=== PATIENT | female | born 1975 | race African-American/Black ===

== ENCOUNTER 2020-05-12 13:00 | Outpatient (CLI) | payer OTHER, SELFPAY ==
--- NOTE | ~2020-05-12 | CT_ITS ---
EXAMINATION: CTA chest PE protocol DATE: 05/12/2020 13:56 INDICATION: COPD TECHNIQUE: Computed tomography angiography (CTA) of the chest was performed with 100 mL Omnipaque-350 intravenous contrast timed to evaluate the pulmonary arteries. Coronal maximum intensity projection 3D-reconstructions were created by the technologist. Automated exposure control and iterative reconst ruction technique were employed. Exam dose: 412.75 mGy-cm total exam DLP. COMPARISON: None. FINDINGS: There is diagnostic contrast enhancement of the pulmonary arteries. There is no evidence of pulmonary embolism. No thoracic aortic aneurysm or dissection. No hilar or mediastinal mass lesion or lymphadenopathy. Normal heart size. No pericardial or pleural effusion. Mild emphysematous changes of the lungs. No pulmonary infiltrate or consolidation or pulmonary mass l esion is evident. Normal morphology of the adrenal glands. Included skeletal structures are unremarkable. No suspicious osteolytic or osteoblastic lesions are i dentified. IMPRESSION: No evidence of pulmonary embolism COPD Reviewed, dictated and finalized at [facility]. Reviewed, dictated and finalized at [facility].
== END 2020-05-12 13:01 | disposition home or self-care (01) ==
LOC: ANHIMG 13:03
PROVIDERS: PCP Emergency Medicine; Visit Provider Internal Medicine Pulmonary Disease
DX: J44.9 Chronic obstructive pulmonary disease, unspecified (principal)
CPT/HCPCS: 71275; 94618; Q9967

== ENCOUNTER 2020-05-12 16:05 | Outpatient (CLI) | payer OTHER, SELFPAY ==
[2020-05-12] VITALS (8 sets, daily range): PULSE 92–135; O2SAT 95–98
--- NOTE | 2020-05-12 14:36 | HOMEO2EVAL ---
Home Oxygen Evaluation RC: Home Oxygen (O2) Evaluation Start: 05/12/20 14:29 Freq: Status: Active Protocol: RPE Activity Type Activity Date Activity User E-Sign Co-Sign Detail Recorded Client Recorded Date Recorded By Document 05/12/20 13:15 [email or web address] [email or web address] 05/12/20 14:36 KIERSTEN Document 05/12/20 13:20 [email or web address] [email or web address] 05/12/20 14:36 KIERSTEN Document 05/12/20 13:21 KIERSTEN [email or web address] 05/12/20 14:36 KIERSTEN Document 05/12/20 13:22 KIERSTEN [email or web address] 05/12/20 14:36 KIERSTEN Document 05/12/20 13:23 KIERSTEN [email or web address] 05/12/20 14:36 KIERSTEN Document 05/12/20 13:24 KIERSTEN [email or web address] 05/12/20 14:36 KIERSTEN Document 05/12/20 13:25 KIERSTEN [email or web address] 05/12/20 14:36 KIERSTEN Document 05/12/20 13:35 KIERSTEN [email or web address] 05/12/20 14:36 KIERSTEN 05/12/20 05/12/20 05/12/20 13:15 13:20 13:21 Home O2 Evaluation Test Phase Resting Exercise Exercise Oxygen Delivery Room Air Room Air Room Air Pulse Oximetry (90-100 %) 95 98 98 Pulse Rate (60-100 beats/min) 93 101 H 104 H Treatment Charges O2 Evaluation - Outpatient 05/12/20 05/12/20 05/12/20 13:22 13:23 13:24 Home O2 Evaluation Test Phase Exercise Exercise Exercise Oxygen Delivery Room Air Room Air Room Air Pulse Oximetry (90-100 %) 96 96 96 Pulse Rate (60-100 beats/min) 117 H 124 H 130 H Treatment Charges 05/12/20 05/12/20 13:25 13:35 Home O2 Evaluation Test Phase Exercise Resting Oxygen Delivery Room Air Room Air Pulse Oximetry (90-100 %) 96 98 Pulse Rate (60-100 beats/min) 135 H 92 Treatment Charges
--- NOTE | 2020-05-12 14:49 | PCRCNOTE ---
PT WALKED FOR 6 MINUTES AND WALKED 1400 FEET.
== END 2020-05-12 16:06 | disposition home or self-care (01) ==
LOC: ANHPFT 07-07 16:05
PROVIDERS: PCP Emergency Medicine; Visit Provider Internal Medicine Pulmonary Disease
DX: J44.9 Chronic obstructive pulmonary disease, unspecified (principal)
CPT/HCPCS: 94618

== ENCOUNTER 2020-06-01 15:58 | Outpatient (CLI) | payer OTHER, SELFPAY ==
[2020-06-01 16:17] LABS: Basophils Percent Auto 0.7 % (0.2-1.2); Eosinophils Absolute Auto 0.2 K/mm3 (0-0.3); Eosinophils Percent Auto 3.4 % (0-4.4); Hematocrit 38.9 % (37.0-47.0); Hemoglobin 12.4 g/dL (12.0-15.0); Immature Granulocyte Absolute 0.01 K/mm3 (0.00-0.031); Immature Granulocyte Percent A 0.2 % (0-0.5); Lymphocytes Absolute Auto 1.56 K/mm3 (0.9-3.2); Lymphocytes Percent Auto 29.1 % (18.3-44.2); Mean Corpuscular HGB Conc 31.9 g/dl (32-36); Mean Corpuscular Hemoglobin 26.3 pg (26-34); Mean Corpuscular Volume 82.6 fl (80-100); Monocytes Absolute Auto 0.5 K/mm3 (0.1-0.6); Monocytes Percent Auto 8.8 % (2.6-8.5); Neutrophils Absolute Auto 3.1 K/mm3 (1.3-6.7); Neutrophils Percent Auto 57.8 % (45.5-73.1); Platelet Count Result 413 k/mm3 (150-375); Red Blood Count 4.71 M/mm3 (4.2-5.4); Red Cell Distribution Width 15.4 % (11.5-14.5); White Blood Count 5.4 K/mm3 (4.5-10.0)
[2020-06-05 02:58] LABS: Immunoglobulin E 48 kU/L (<=114)
== END 2020-06-01 15:59 | disposition home or self-care (01) ==
PROVIDERS: PCP Emergency Medicine; Visit Provider Internal Medicine Pulmonary Disease
DX: J44.9 Chronic obstructive pulmonary disease, unspecified (principal); J45.909 Unspecified asthma, uncomplicated
CPT/HCPCS: 36415; 82785; 85025

== ENCOUNTER → 2020-08-05 06:40 | Outpatient (CLI) | payer OTHER, SELFPAY ==
[2020-08-05 18:47] LABS: SARS-CoV-2 RNA PCR Negative
== END ==
PROVIDERS: PCP Emergency Medicine; Visit Provider Emergency Medicine
DX: R68.89 Other general symptoms and signs (principal); Z20.822 Contact with and (suspected) exposure to COVID-19
CPT/HCPCS: C9803; U0003; U0005

== ENCOUNTER 2020-08-12 16:19 | Outpatient (CLI) | payer OTHER, SELFPAY ==
--- NOTE | ~2020-08-12 | US_ITS ---
EXAMINATION: US pelvic complete w TV DATE: 08/12/2020 17:10 INDICATION: Left lower quadrant abdominal pain. TECHNIQUE: Multiple transabdominal and transvaginal sonographic images of the pelvis were obtained. COMPARISON: None. FINDINGS: TRANSABDOMINAL ULTRASOUND: The uterus measures 8.8 x 4.6 x 5.6 cm. There is no free fluid in the pelvis. TRANSVAGINAL ULTRASOUND: The endometrial complex measures 6 mm in thickness. There is a 2.3 cm intramural fibroid posteriorly. The right ovary measures 3.0 x 2.0 x 1.9 cm. The left ovary measures 1.3 x 0.6 x 1.0 cm. There is no rmal vascular flow in the ovaries. IMPRESSION: 1. Uterine fibroid. Reviewed, dictated and finalized at location [facility]. IMPRESSION: 1. Uterine fibroid.
--- NOTE | ~2020-08-12 | US_ITS ---
EXAMINATION: US thyroid DATE: 08/12/2020 17:09 INDICATION: Hypothyroidism. TECHNIQUE: Multiple ultrasound images of the thyroid were obtained. COMPARISON: None. FINDINGS: The right thyroid lobe measures 4.3 x 1.3 x 1.4 cm. The left thyroid lobe measures 3.5 x 0.9 x 1.2 c m. There is normal echotexture and echogenicity throughout the thyroid gland. No discrete nodules id entified. Normal vascular flow is present. IMPRESSION: 1. Normal thyroid. Reviewed, dictated and finalized at location [facility]. IMPRESSION: 1. Normal thyroid.
== END 2020-08-12 16:20 | disposition home or self-care (01) ==
LOC: ANHIMG 16:20
PROVIDERS: PCP Emergency Medicine; Visit Provider Emergency Medicine
DX: R10.32 Left lower quadrant pain (principal); R94.6 Abnormal results of thyroid function studies; D25.9 Leiomyoma of uterus, unspecified
CPT/HCPCS: 76536; 76830; 76856

== ENCOUNTER 2020-12-27 10:36 | Outpatient (CLI) | payer OTHER, SELFPAY ==
--- NOTE | ~2020-12-27 | US_ITS ---
EXAMINATION: US right upper quadrant DATE: 12/27/2020 11:32 INDICATION: Right upper quadrant pain TECHNIQUE: Multiple grayscale and Doppler ultrasound images of the abdomen were obtained. COMPARISON: CT, 05/12/2020 FINDINGS: The head, body, and tail of the pancreas are normal. The liver is normal with normal echoge nicity and echotexture. No surface nodularity. Normal hepatopetal flow in the main portal vein. The g allbladder is normal with no abnormal wall thickening, pericholecystic fluid or stones. The normal co mmon bile duct measures 3 mm. There was no sonographic Oliveira sign. IMPRESSION: 1. Normal sonographic study of the gallbladder. Reviewed, dictated and finalized at location [facility]. F FIELD ENGINEER
== END 2020-12-27 10:37 | disposition home or self-care (01) ==
PROVIDERS: PCP Emergency Medicine; Visit Provider Emergency Medicine
DX: R74.01 Elevation of levels of liver transaminase levels (principal)
CPT/HCPCS: 76705

== ENCOUNTER 2021-01-14 09:31 | Outpatient (CLI) | payer OTHER, SELFPAY ==
--- NOTE | ~2021-01-14 | US_ITS ---
EXAMINATION: US venous doppler LE RT DATE: 01/14/2021 09:59 INDICATION: Right lower limb swelling TECHNIQUE: Lopez scale images without and with compression and Doppler images of the right lower extre mity veins were obtained. COMPARISON: None FINDINGS: The right common femoral vein, profunda femoral vein, femoral vein, popliteal vein, peronea l trunk, posterior tibial veins, and greater saphenous vein are patent. IMPRESSION: 1. Patent right lower extremity veins. No evidence of deep venous thrombosis. Reviewed, dictated and finalized at location A. GRINDER OPERATOR
== END 2021-01-14 09:32 | disposition home or self-care (01) ==
LOC: ANHIMG 09:35
PROVIDERS: PCP Emergency Medicine; Visit Provider Internal Medicine Hematology & Oncology
DX: I82.4Y1 Acute embolism and thrombosis of unspecified deep veins of right proximal lower extremity (principal)
CPT/HCPCS: 93971